=== PATIENT | male | born 2000 | race Two or more races ===

== ENCOUNTER 2023-10-19 14:44 | Emergency (ER) | payer OTHER ==
[~2023-10-19] VITALS: Ht 162.6 cm; Wt 71.9 kg
[2023-10-19 15:33] VITALS: BP 117/71; PULSE 87; RESP 18; O2SAT 98
== END 2023-10-19 16:33 | disposition home or self-care (01) ==
LOC: ER 14:45
DX: T16.2XXA Foreign body in left ear, initial encounter (principal); W44.9XXA Unspecified foreign body entering into or through a natural orifice, initial encounter; Y93.89 Activity, other specified; Y92.89 Other specified places as the place of occurrence of the external cause; Y99.8 Other external cause status
CPT/HCPCS: 69200; 99284